=== PATIENT | female | born 1995 | race African-American/Black ===

== ENCOUNTER 2024-04-18 18:45 | Emergency (ER) | payer SELFPAY ==
[~2024-04-18] VITALS: Ht 167.6 cm; Wt 80.0 kg
[2024-04-18 18:47] VITALS: O2SAT 99
[2024-04-18] MEDS ORDERED: IBUPROFEN 600MG TABLET PO ONE (20:45)
[2024-04-18] MEDS: HYDROCODONE/ACETAMINOPHEN 5/325MG TABLET PO ONE (21:38)
[2024-04-18] MEDS: TETANUS, DIPHTHERIA, PERTUSSIS VAC/PF 0.5ML (>10YR OLD) IM ONE (21:39)
[2024-04-18] MEDS ORDERED: CYCL10TA21 MT (21:51)
[2024-04-18] MEDS ORDERED: NAPR-1176 MT (21:51)
[2024-04-18 22:00] VITALS: BP 132/76; PULSE 60; RESP 18; TEMP 36.66960; O2SAT 97
== END 2024-04-18 22:31 | disposition home or self-care (01) ==
LOC: ER 18:45
DX: S16.1XXA Strain of muscle, fascia and tendon at neck level, initial encounter (principal); S00.81XA Abrasion of other part of head, initial encounter; S20.219A Contusion of unspecified front wall of thorax, initial encounter; S39.012A Strain of muscle, fascia and tendon of lower back, initial encounter; S40.022A Contusion of left upper arm, initial encounter; S70.02XA Contusion of left hip, initial encounter; R51.9 Headache, unspecified; J45.909 Unspecified asthma, uncomplicated; V49.49XA Driver injured in collision with other motor vehicles in traffic accident, initial encounter; Y93.89 Activity, other specified; Y92.89 Other specified places as the place of occurrence of the external cause; Y99.8 Other external cause status
CPT/HCPCS: 71045; 73030; 73502; 81025; 90471; 90715; 99284